=== PATIENT | female | born 1935 | race Caucasian/White ===

== ENCOUNTER 2017-05-01 14:10 | Inpatient (IN) | payer MEDICARE, OTHER ==
[~2017-05-01] VITALS: Ht 149.9 cm; Wt 74.3 kg
--- NOTE | ~2017-05-01 | CR72 ---
[facility] A Service of [facility] & [facility] RADIOLOGY TEXT RESULTS PATIENT: MARICRUZ PAULINO LOCATION: A 228 : 35 UNIT #: [id number] AGE: [address]: Rahul Hazel MD SEX: F ORDER DR: [id number] [facility] [address] [facility]. [place], [place] [address] [id number] I MR#: [id number] #: [id number] NAME: MARICRUZ PAULINO : 1935 SEX: F STUDY DATE/TIME: 05/01/2017 14:59 UNIT: [facility] ROOM: 228 STUDY DESCRIPTION: CR Chest Single View Portable Attending Physician: Rahul Hazel M.D. Ordering Physician: Jp Merino M.D. Primary Care Physician: Iesha Salcido M.D. MEDICAL IMAGING REPORT This report is preliminary unless electronic signature is present EXAM Single view chest INDICATIONS Single portable AP view chest compared to 11/18/2016. FINDINGS Heart and mediastinal contours are unchanged. There is a large hiatal hernia. This results in atelectasis in both lungs. No new pulmonary opacities. No pneumothorax. IMPRESSION No interval change. Large hiatal hernia resulting atelectasis in both lung bases. Dictated by... Cosmo Barbosa M.D. THIS IS AN ELECTRONICALLY VERIFIED REPORT Cosmo Barbosa M.D. at 05/02/2017 1:27 PM RPC/jono TD: 05/02/2017 13:10 JOB #: [id number] MEDICAL IMAGING REPORT Page 1 of 1 COPY
--- NOTE | ~2017-05-01 | A ---
[facility] Nutrition Therapy DATE: 05/06/17 Patient: MARICRUZ PAULINO Physician: NOHELIA Address: [address] [place] [address] [place]ACE Room/Bed: [address] [place] [address], Zip: [place] [address] Admit Date: 05/01/17 Date of : 35 Height: 4 11 Weight: 163 74.3 NUTRITIONAL ASSESSMENT: REASON: CONSULT PT IS 81 Y.O. FEMALE ADMITTED FOR COPD EXAC PMH: AFIB, COPD, HTN, ANXIETY, ASTHMA, CHF, HIATAL HERNIA Anthropometrics: 4'11", WT: 147# (PER PT) (67 KG), BMI: 29.7 -WEIGHT IN [facility] IS 163# Labs: GLU: 123, BUN: 24, K+:3.1, M.3 Meds: PREDNISONE, PROTONIX I/O & Bowel function: 1350/3900 Skin Integrity: DRY SKIN NOTED ALL OVER BODY Estimated Nutrition Needs: INCREASED NEEDS 2' CURRENT CONDITION, WEIGHT LOSS NOTED, DECREASED PO INTAKE AND APPETITE Assessment: CHART REVIEWED AND EVENTS NOTED. PT SEEN FOR CONSULT. PT REPORTS DECREASED PO INTAKE 2' DECREASED APPETITE PAST SEVERAL MONTHS. PT ADDS CAUSE OF HER DECREASED PO INTAKE AND APPETITE IS HIATAL HERNIA/N/V. PT REPORTS FOOD SOMETIMES GETS STUCK, NOTES DRINKING MOSTLY FLUIDS LATELY. PT REPORTS UBW IS ~170# BUT UNABLE TO REPORT TIME FRAME OF WEIGHT LOSS. THIS RD ENCOURAGED SMALL FREQUENT MEALS + SUPPLEMENT INTAKE, PT AGREED TO ENSURE PUDDING BID. OF NOTE, PT ALSO RECEIVING ENSURE SHAKES PER MD ORDERS. RD ALSO PROVIDED HOME WRITTEN AND VERBAL HIGH PROTEIN, HIGH CALORIE SOFT FOODS DIET EDUCATION. PT DEMONSTRATED UNDERSTANDING OF THE TOPIC, REPORTED NO DIET QUESTIONS AT THIS TIME. RD TO REMAIN AVAILABLE. Dx: INADEQUATE PROTEIN-ENERGY INTAKE R/T PMH-HIATAL HERNIA, CURRENT DIAGNOSIS, DECREASED APPETITE AEB PT REPORT ABOVE, WEIGHT LOSS NOTED. Intervention: 1. 2 GM NA + 1800 ML FLUID RESTRICTION 2. VANILLA ENSURE SHAKES TID 3. ENSURE PUDDING BID Monitoring, Evaluation and Goals: 1. ORAL INTAKE; CONSUME/TOLERATE >50% OF MEALS AND SUPPLEMENTS 2. WEIGHTS; PREVENT FURTHER UNINTENTIONAL WEIGHT LOSS 3. LABS; WNL [facility] Nutrition Therapy DATE: 05/06/17 Patient: MARICRUZ PAULINO Physician: NOHELIA Address: [address] [facility] [place] Room/Bed: [address] [place] [address], Zip: [place] [address] Admit Date: 05/01/17 Date of : 35 Height: 4 11 Weight: 163 74.3 MONITOR; PER PROTOCOL, CRITERIA TO DETERMINE WHETHER ABOVE GOALS ARE MET Recommendations: 1. RD TO ORDER [place] ENSURE PUDDING BID W/MEALS FOR ADDITIONAL PROTEIN AND KCAL 2. RECOMMEND TO CHANGE CURRENT DIET ORDER TO REGULAR, IF PO INTAKE MINIMAL 3. APPRECIATE FAMILY AND STAFF TO ENCOURAGE ADEQUATE PO INTAKE. ASSIST W/ORDERING MEALS NEEDED RD WILL F/U PER PROTOCOL PT IS MILDLY COMPROMISED Respectfully, VENITA GANNON MS, RD, LD Food and Nutritional Services [facility] cc: client file
--- NOTE | ~2017-05-01 | DS ---
Unit #: [id number] #: [id number] Patient: MARICRUZ PAULINO [id number] [address] [address] [id number] I MR#: [id number] NAME: MARICRUZ PAULINO ROOM: 228 Age: 81 Sex: F Admission Date: 05/01/2017 : 1935 Discharge Date: 05/07/2017 Attending Physician: Rahul Hazel M.D. Primary Care Physician: Iesha Salcido M.D. DISCHARGE SUMMARY DISCHARGE DIAGNOSES 1. Acute diastolic heart failure, improved with diuresis. 2. Severe chronic obstructive pulmonary disease, bronchospasm improved. 3. Chronic respiratory failure on 3 L nasal cannula oxygen at home. 4. Metabolic alkalosis, mild secondary to diuresis. 5. Thrombocytopenia, overall improved and stable at 100. 6. Very large hiatal hernia. 7. Permanent atrial fibrillation. 8. Pulmonary hypertension, right ventricular systolic pressure estimated at 38. 9. Supratherapeutic INR on presentation, improved. 10. Remote cerebrovascular accident. DISCHARGE MEDICATIONS 1. Advair one puff twice a day. 2. Incruse one puff once a day. 3. Albuterol as needed. 4. Oxygen 3 L at 24 hours a day. 5. Prednisone 40 mg a day for five days then discontinue. 6. Magnesium oxide 400 mg twice a day x5 days then discontinue. 7. Celexa 40 mg daily. 8. Lopressor 25 mg twice a day as per cardiology. 9. Coumadin dosing as per cardiology to an INR of approximately 2.5. 10. Bumex oral dose as per cardiology. 11. Singulair 10 mg daily. 12. Prilosec 20 mg twice a day. 13. Potassium 10 mEq daily. FOLLOWUP 1. Dr. Hazel's nurse practitioner in two weeks. 2. Dr. Hazel in six to eight weeks, consider nocturnal oximetry on oxygen. 3. She will follow up with Dr. George for general medical care. 4. Followup with Dr. Gutiérrez et sonali for cardiac care. DIET Healthy heart, low sodium. May need to liberalize if poor nutrition and/or weight loss as an outpatient. ACTIVITY Oxygen at 3 L at 24 hours a day. DESCRIPTION OF HOSPITALIZATION The patient was admitted through the emergency room with [facility] #: [id number] #: [id number] Patient: MARICRUZ PAULINO. She had diastolic heart failure, fairly significant massive edema. She also had mild COPD exacerbation and was treated appropriately. Her supratherapeutic INR was treated with vitamin K. Pulmonary whyte, she improved. She was changed over to oral steroids, continued to be wheeze free. She will continue her treatment as at home. Lower extremity venous Dopplers were checked for her edema which were negative. A D-dimer was checked in part for evaluation of her pulmonary hypertension and it was only 190. CT angiogram was not performed. Cardiology evaluated the patient, was adjusting her Coumadin and adjusting her diuretics. She had significant steady diuresis with IV Bumex. Oral dosing of her diuretics as per cardiology. She did have difficulty with hypokalemia, hypomagnesemia and this was corrected prior to discharge. She developed a mild metabolic alkalosis and will receive two doses of Diamox prior to discharge. Overall, she did well and was discharged in improved condition. Of note, her code status is do not resuscitate. Dictated by... Rahul Hazel M.D. ROMINA/tiffanie TD: 05/10/2017 12:01 JOB #: [id number] DISCHARGE SUMMARY Page 1 of 1 X Rahul Hazel MD X DISCHARGE SUMMARY
--- NOTE | ~2017-05-01 | CO ---
Unit #: [id number] #: [id number] Patient: MARICRUZ PAULINO [id number] [address] [place], [place] [address] [id number] I MR#: [id number] NAME: MARICRUZ PAULINO ROOM: 228 Age: 81 Sex: F Admission Date: 05/01/2017 : 1935 Attending Physician: Rahul Hazel M.D. Primary Care Physician: Iesha Salcido M.D. Consultation Date: 05/02/2017 CONSULTATION REPORT REASON FOR CONSULTATION Cardiovascular management. HISTORY OF PRESENT ILLNESS This is an 81-year-old white female, known to Dr. Gutiérrez in the office with a past medical history of atrial fibrillation, that was diagnosed in 10/2016; previous atrial tachycardia in 2006; anxiety; COPD, on 3 L nasal cannula; hypertension; and normal coronaries per cardiac catheterization in 09/2006. The patient was seen at [facility] in 10/2016 for an acute ischemic cerebrovascular accident and acute PE. She was discharged on long-term anticoagulation with Coumadin. A 2D echocardiogram was completed on 11/22/2016, which revealed an ejection fraction of 50% with a moderately enlarged right ventricle. There is cvrebnzw-bf-futkue tricuspid regurgitation with an RVSP of 38 mmHg. The patient presented to the emergency department with complaints of shortness of breath. She states that 2 weeks ago, she had some nausea, vomiting, and a flu-like illness, which improved. Since that time, she has had some ongoing shortness of breath. Yesterday, she was in the bathroom and it took her 1.5 hours to take a bath. When she was finished, she could not dress herself. EMS was dispatched and she was brought to the emergency department. She does complain of a recent fever and some pain in her left ear. She has had a nonproductive cough and generalized weakness. Her appetite has been decreased, and she states that due to her large hernia, she occasionally chokes on food, but not on a daily basis. There are no reports of chest pain. She admits to some palpitations. She denies dizziness or syncope. She has had some lower extremity edema and complains of not being able to lay flat at night. She sleeps with two pillows and often wakes up in the middle of the night with short of breath. In the emergency department. Her O2 saturation was 91% on 3 L nasal cannula. Initial labs revealed an INR of 7.5. The patient states that she is on Coumadin, which is managed by her primary care, but she has not had a ProTime checked in quite some time. In the emergency department, they gave her a full dose of aspirin, furosemide, and Solu-Medrol. She was admitted for COPD exacerbation and started on antibiotics, nebs, and continued steroids. Cardiology was consulted for cardiovascular management. Additional labs revealed BNP of 572. Platelets are mildly low at 124,000. Potassium was normal at 4.1. Creatinine is 0.7 with a BUN of 13. Chest x-ray reveals a large hiatal hernia, resulting in atelectasis in both lung bases. Initial cardiac enzymes are negative. EKG reveals atrial fibrillation with a left axis deviation and poor R-wave progression. Unit #: [id number] #: [id number] Patient: MARICRUZ PAULINO PAST MEDICAL HISTORY 1. Status post cardiac catheterization on 10/01/[address] [facility], which revealed left main LAD and left circumflex normal. Right coronary artery congenitally small, but normal. Ejection fraction 55%. Mild mitral regurgitation. 2. A 2D echocardiogram on 11/22/2016 at [facility] revealed an ejection fraction of 50%. Moderately enlarged right ventricle. RV global systolic function moderately reduced. Lqfxyqrd-dx-kkmxni tricuspid regurgitation. RVSP 38 mmHg. 3. Previous 2D echocardiogram on 05/15/2009 revealed mild asymmetric LVH. Mild left atrial enlargement. Qdiq-za-gvkfhpnb mitral regurgitation. Wzqqbxzn-fd-qtpjtk tricuspid regurgitation. RVSP 50 to 60 mmHg. Trace aortic regurgitation. 4. Previous admission to [facility] in 10/2016 for acute PE, acute ischemic cerebrovascular accident, and atrial fibrillation. 5. Previous left bundle-branch block, but not currently. 6. Atrial tachycardia in 2006. 7. COPD, on 3 L nasal cannula at home. 8. Anxiety. 9. Hypertension. 10. Nonsmoker. PAST SURGICAL HISTORY 1. Hysterectomy. 2. Cardiac catheterization. HOME MEDICATIONS Ventolin 2 puffs inhalation 4 times daily, Advair 250/50 one disk inhalation twice daily, Singulair 10 mg p.o. daily, metoprolol tartrate 100 mg p.o. daily, Celexa 40 mg p.o. daily, Norvasc 5 mg p.o. daily, Lasix 20 mg p.o. daily, Prilosec 20 mg p.o. b.i.d., Coumadin 2 mg p.o. daily, potassium 10 mEq p.o. daily, Breo 1 puff inhalation daily. ALLERGIES Meperidine. SOCIAL HISTORY The patient lives in a private resident with her son. She is on 3 L of home oxygen. She is a lifetime nonsmoker. There are no reports of alcohol or illicit drug use. FAMILY HISTORY Her mother had cancer and hypertension. Her father of "blood clots." REVIEW OF SYSTEMS A 10-point review of systems negative except for details noted above in HPI. PHYSICAL EXAMINATION VITAL SIGNS: Temperature 97.7, pulse 61, blood pressure 107/55. CONSTITUTIONAL: This is an 81-year-old white female, in no acute distress. SKIN: Warm and dry. NECK: Supple. No jugular vein distention. Retroflexed. Normal carotid upstrokes. No carotid bruits auscultated. HEART: S1 and S2. Irregularly irregular. Soft systolic ejection murmur at the left sternal border. No rubs or gallops. LUNGS: Bilateral breath sounds. Occasional wheezes and rales. Unit #: [id number] #: [id number] Patient: MARICRUZ PAULINO Respirations are even and nonlabored. No rhonchi. ABDOMEN: Soft, nontender, and nondistended. Positive bowel sounds auscultated x4 quadrants. No ascites noted. EXTREMITIES: Lower extremities have 3+ pitting edema. DP and PT pulses are 2+. Capillary refill is less than 2 seconds. DIAGNOSTIC STUDIES LABORATORY RESULTS: White blood cell count 8.4, hemoglobin 13.2, hematocrit 41.6, and platelets 124. Sodium 140, potassium 4.1, chloride 102, CO2 of 28, BUN 13, creatinine 0.7, glucose 99, AST 26, ALT 18, alkaline phosphatase 72. BNP 572. INR 7.5. IMAGING STUDIES: Chest x-ray reveals a large hiatal hernia, resulting in atelectasis in both lung base. CARDIOVASCULAR STUDIES: Electrocardiogram reveals atrial fibrillation with low-voltage QRS. Left axis deviation. Poor R-wave progression. QTc prolonged at 493 milliseconds. IMPRESSION 1. Acute diastolic congestive heart failure. 2. Large hiatal hernia. 3. Atrial fibrillation with controlled ventricular response, likely permanent. First diagnosed in 10/2016. 4. Over anticoagulation with Coumadin. 5. Chronic obstructive pulmonary disease, on 3 L of home oxygen. 6. Anxiety. 7. History of ischemic cerebrovascular accident in 10/2016 with no significant residual. 8. History of pulmonary embolism in 10/2016. 9. Hypertension. 10. Left ventricular ejection fraction of 50% with cbpyvynt-cg-rtvqzc tricuspid regurgitation. RVSP 38 mmHg per 2D echocardiogram on 11/22/2016. 11. Mild thrombocytopenia. 12. Nonsmoker. PLAN 1. The patient presents to the hospital with complaints of shortness of breath. She was admitted and Cardiology was consulted for further evaluation. 2. There is significant volume overload on exam. The patient will be started on IV diuretics, strict intake and output, and fluid restriction. 3. Her Coumadin has been placed on hold. There are no reports of bleeding. However, the patient is actively getting antibiotics. One dose of vitamin K will be given. The patient's INR will be rechecked tomorrow. 4. She will be continued on metoprolol at a lower dose. 5. Amlodipine will be discontinued due to lower extremity edema. 6. TSH and fasting lipid profile will be obtained as well as additional cardiac enzymes and EKG. 7. The patient denies chest pain on exam, and initial cardiac markers are negative. Dictated by... YAIR Lord Unit #: [id number] #: [id number] Patient: MARICRUZ PAULINO TD: 05/03/2017 09:59 JOB #: [id number] CONSULTATION REPORT Page 1 of 1 X X CONSULTATION REPORT
--- NOTE | ~2017-05-01 | US84 ---
[id number] [facility] [address] [facility] [address] [place], [place] [address] [id number] I MR#: [id number] Acc #: [id number] NAME: MARICRUZ PAULINO : 1935 SEX: F STUDY DATE/TIME: 05/03/2017 17:24 UNIT: C2A ROOM: 228 STUDY DESCRIPTION: US LE Veins Complete Eulalio Stdy Attending Physician: Rahul Hazel M.D. Ordering Physician: Rahul Hazel M.D. Primary Care Physician: Iesha Salcido M.D. MEDICAL IMAGING REPORT This report is preliminary unless electronic signature is present EXAM Bilateral lower extremity venous ultrasound HISTORY Right lower extremity and foot pain for 3 weeks. Bilateral lower extremity edema. FINDINGS Ultrasound examination of the lower extremity veins was performed from the groin to the calf bilaterally with sanders-scale, color Doppler and spectral Doppler evaluation. Exam is positive for superficial venous thrombosis in the right greater saphenous vein at the level of the ankle. No additional SVT. No DVT in the lower extremities bilaterally. Small amount of fluid is noted in the right popliteal fossa. IMPRESSION 1. No DVT. 2. Exam is positive for occlusive short-segment superficial venous thrombosis in the right greater saphenous vein at the level of the ankle. 3. Small amount of fluid in the right popliteal fossa. STAT * RESULT Dictated by... Rhys Mosley M.D. THIS IS AN ELECTRONICALLY VERIFIED REPORT Rhys Mosley M.D. at 05/04/2017 2:25 PM CHUN/abena TD: 05/04/2017 10:55 JOB #: [id number] MEDICAL IMAGING REPORT Page 1 of 1 COPY
--- NOTE | ~2017-05-01 | HP ---
Unit #: [id number] #: [id number] Patient: MARICRUZ WALLACE [id number] [address] [place], [place] [address] [id number] I MR#: [id number] NAME: MARICRUZ WALLACE ROOM: 228 Age: 81 Sex: F Admission Date: 05/01/2017 : 1935 Attending Physician: Rahul Hazel M.D. Primary Care Physician: Iesha Salcido M.D. HISTORY AND PHYSICAL HISTORY OF PRESENT ILLNESS Maricruz Wallace, is an 81-year-old female, admitted through the emergency room with the chief complaint of shortness of breath. Ms. Wallace has a history of chronic obstructive pulmonary disease, and congestive heart failure, as well as chronic respiratory failure. She is followed in her practice by Dr. Jose Hazel. The patient complained of worsening shortness of breath and exertional dyspnea for several weeks. She also complained that her ankles have been more swollen than usual. She denied wheezing, productive cough, purulent sputum, hemoptysis, or chest pain. she presented to the emergency room with the above complaints. It was unclear in ED whether her dyspnea was on a cardiac or pulmonary basis but she seems incapacitated by the severity of her dyspnea and was admitted. She had become short of breath walking from room to room and has become housebound because of dyspnea. The patient has a history of asthma and obstructive airway disease. She denied use of tobacco in the past. She is on home oxygen at three liters per minute and uses Advair and Breo plus p.r.n. albuterol at home. She also has a history of hypertension and congestive heart failure, and is followed by Dr. Grove. She also has a history of atrial arrhythmias and is on long-term anticoagulation with warfarin. In the emergency department, her INR was elevated at 7. PAST MEDICAL HISTORY Her past medical history is remarkable for a large hiatus hernia, hypertension, chronic obstructive pulmonary disease/asthma, congestive heart failure, atrial arrhythmias. OUTPATIENT MEDICATIONS Include: 1. Albuterol 2. Advair 250/50 3. Singulair 10 mg daily 4. Metoprolol 100 mg daily 5. Celexa 40 mg daily 6. Norvasc 5 mg daily 7. Lasix 20 mg daily 8. Prilosec 20 mg daily 9. Warfarin 2 mg daily 10. Potassium supplement 10 mEq per day 11. Breo Ellipta 200/25 one puff daily Unit #: [id number] #: [id number] Patient: MARICRUZ WALLACE ALLERGIES The patient is allergic to Demerol. FAMILY HISTORY Reviewed and noncontributory. Positive for cardiac disease. SOCIAL HISTORY The patient is nonsmoker, no history of alcohol or drug abuse. REVIEW OF SYSTEMS CONSTITUTIONAL: She denied fever, chills, or recent change in weight. ENT: Chronic nasal and sinus congestion and difficulty breathing through her nose, though this is no worse than usual. No epistaxis. NECK: No pain in cervical spine. No thyroid enlargement. PULMONARY: As above mainly complained of dyspnea on exertion. CARDIOVASCULAR: Denied mid sternal chest pain, increased edema in the lower extremities. GI: Denied nausea, vomiting, or diarrhea. : Denied dysuria or hematuria. SKIN: No rash or nodules. LYMPH: No adenopathy in the neck, cervical or axillary areas. NEURA: No loss of consciousness, seizures, or syncope. ENDOCRINE: Denied cold intolerance, polyuria, polydipsia. MUSCULOSKELETAL: Complained of arthritic pain in her lower back, hips, and knees all made worse by standing or walking for more than 5 to 10 minutes. PHYSICAL EXAMINATION GENERAL: On exam, she appeared an elderly white female. VITAL SIGNS: Today, temperature was 97.6, pulse was 53, respirations 18, her blood pressure was 118/66. HEENT: Head: Normocephalic without evidence of trauma. Eyes: Pupils are equal, round, and reactive to light. Accommodation not tested. Sclerae anicteric. Conjunctivae normal. Ears, nose, and throat: Nostrils open and patent. Tympanic membranes appeared normal. Oral cavity remarkable for an edentulous mouth. Mallampati class 2-3. NECK: Supple without adenopathy or jugular venous distention. LUNGS: Hyperresonant to percussion, with very diminished breath sounds but otherwise clear. No rales, rhonchi, nor wheezes. CARDIAC EXAMINATION: PMI poorly localized. Heart sounds distant. No murmurs or gallops. ABDOMEN: Soft and nontender. No hepatosplenomegaly or masses. Bowel sounds are normal. GENITALIA: Normal female. RECTAL EXAM: Deferred. EXTREMITIES: Without clubbing or cyanosis, 2+ pedal edema noted. SKIN: Warm and dry with normal capillary refill. NEURO: Cranial nerves II through XII intact. Sensory was normal to pin prick and touch, 4/5 strength in the extremities. Deep tendon reflexes were 1+ in both upper and lower extremities. Babinski's negative. DIAGNOSTIC STUDIES LABORATORY: On oxygen at three liters per minute, while in the ED, pO2 was 86.9, pCO2 was 42.6, pH 7.405. IMAGING: Her chest x-ray remarkable for a large hiatus hernia and bibasilar atelectasis, her BUN was 15, creatinine was 0.8, her Unit #: [id number] #: [id number] Patient: MARICRUZ WALLACE electrolytes were normal. Enzymatic CO2 was 24. Her total bilirubin was elevated at 2.6, direct elevated at 1.0. Her transaminase levels were normal. This morning her INR was 7.9. This morning her hemoglobin was 12.9 grams, hematocrit 39.2%, white blood cell count was 4,000. IMPRESSION 1. Exertional dyspnea. 2. Congestive heart failure which seems I suspect is a contributing cause to her dyspnea. 3. Chronic obstructive pulmonary disease/asthma. 4. Excess anticoagulation. 5. Hypertension. 6. Gastroesophageal reflux/hiatus hernia. 7. Depression. 8. Excess anticoagulation. RECOMMENDATIONS The patient has been placed on nebulized ipratropium plus albuterol q.4h, Symbicort 160/4.5 two puffs every 12 hours, Solu-Medrol 40 mg IV q.8h, doxycycline 50 mg p.o. every 12 hours, oxygen at three liters per minute. Her warfarin has been placed on hold. I have asked cardiology with Dr. Grove to see the patient and for her help concerning cardiac component to her dyspnea. Dictated by Jose Nathan M.D. GIL/ronald TD: 05/03/2017 05:52 JOB #: [id number] HISTORY AND PHYSICAL Page 1 of 1 X Jose Nathan MD X HISTORY AND PHYSICAL
--- NOTE | ~2017-05-01 | EKG ---
PATIENT: MARICRUZ PAULINO UNIT #: [id number] Ventricular Rate: 71 BPM Atrial Rate: 80 BPM QRS Duration: 116 ms Q-T Interval: 454 ms QTC Calculation(Bezet): 493 ms Calculated R [place]: -97 degrees Calculated T [place]: 139 degrees Diagnosis Line: Atrial fibrillation Diagnosis Line: Low voltage QRS Diagnosis Line: Inferior infarct , age undetermined Diagnosis Line: Anterolateral infarct , age undetermined Diagnosis Line: Abnormal ECG Diagnosis Line: No previous ECGs available Diagnosis Line: Confirmed by STEFF GUERIN MD ([id number]) on 05/05/2017 Diagnosis Line: 7:41:24 AM INTERPRETING MD: TRUONG VERMA
[~2017-05-01 14:10] MED LIST: ADVAIR 250-501 EAC1 IH; ALBUTEROL17 GM INH; CITALOPRAM HBR40 MG PO; CLARITIN10 MG PO; HCTZ PO; LISINOPRIL PO; MELATONIN5 M1 PO; METOPROLOL PO; MONTELUKAST SOD10 MG PO; OMEPRAZOLE20 M2 PO; OYSTER CALCIUM500 MG PO; SIMVASTATIN20 MG PO
[2017-05-01 14:40] LABS: POC - CKMB 1.4 ng/mL (0.0-7.9); POC - TROPONIN <0.05 ng/mL (<=0.05)
[2017-05-01 14:44] LABS: ARTERIAL BLD GAS O2 SATURATION 95.3 % (90.0-100.0); ARTERIAL BLOOD GAS CARBOXY HB 0.8 %sat (0.0-9.0); ARTERIAL BLOOD GAS HCO3 26.7 mmol/L; ARTERIAL BLOOD GAS MET HB 1.1 %sat (0.0-2.0); ARTERIAL BLOOD GAS PCO2 42.6 mmHg (35.0-45.0); ARTERIAL BLOOD GAS PO2 86.9 mmHg (80.0-100); ARTERIAL BLOOD GAS pH 7.405 (7.350-7.450)
[2017-05-01 14:45] LABS: ARTERIAL BLOOD GAS ALLEN TEST NORMAL; ARTERIAL BLOOD GAS ART SITE RIGHT RADIAL; ARTERIAL DRAW? YES
[2017-05-01 14:46] LABS: ARTERIAL BLOOD GAS DELIVERY NASAL CANNULA
[2017-05-01 14:49] LABS: BASOPHIL% 0.4 % (0-2.5); EOSINOPHIL% 0.3 % (0.0-7.0); HEMATOCRIT 41.6 % (35.0-45.0); HEMOGLOBIN 13.2 gm/dL (12.0-16.0); LYMPHOCYTE% 23.3 % (17.0-45.0); MEAN CELL VOLUME 97.1 FL (83-96); MEAN CORPUSCULAR HEMOGLOBIN 30.8 PG (28-34); MEAN CORPUSCULAR HGB CONC 31.7 g/dL (30-36); MEAN PLATELET VOLUME 11.2 FL (6.5-11.5); MONOCYTE% 11.5 % (3.0-12.0); NEUTROPHIL# 5.4 X10e3 (1.5-7.1); NEUTROPHIL% 64.5 % (40-75); PLATELET COUNT 124 X10e3 (140-420); RED BLOOD COUNT 4.28 X10e (3.90-5.30); RED CELL DISTRIBUTION WIDTH 16.6 % (11.0-15.5); WHITE BLOOD COUNT 8.4 X10e3 (4.0-10.5)
[2017-05-01 15:07] LABS: DIFF IND NO
[2017-05-01 15:12] LABS: PARTIAL THROMBOPLASTIN TIME 37.9 SECONDS (23.5-31.3); PROTHROMBIN TIME (PATIENT) 81.6 SECONDS (10.0-11.7)
[2017-05-01 15:21] LABS: INR 7.5
[2017-05-01] MEDS ORDERED: NORVASC PO (16:00)
[2017-05-01] MEDS ORDERED: LASIX20 MG PO (16:00)
[2017-05-01] MEDS ORDERED: PRILOSEC PO (16:00)
[2017-05-01] MEDS ORDERED: EFFER-K 10 MEQ10 MEQ PO (16:01)
[2017-05-01] MEDS ORDERED: COUMADIN1 MG PO (16:01)
[2017-05-01] MEDS ORDERED: BREO ELLIPTA 21 EACH INH (16:02)
[2017-05-01 17:12] LABS: ALBUMIN SERUM 3.7 g/dL (3.5-5.0); BILIRUBIN,INDIRECT 1.6 mg/dL (0.0-0.9); BILIRUBIN,TOTAL 2.6 mg/dL (0.2-2.0); BUN/CREATININE RATIO 18.57; CALCIUM SERUM 8.4 mg/dL (8.4-10.2); CREATININE SERUM 0.7 mg/dL (0.6-1.4); GLOM FILT RATE Estimated 81.3 mL/min (>60); POTASSIUM 4.1 mmol/L (3.5-5.1)
[2017-05-01 18:21] LABS: POC - CKMB 1.5 ng/mL (0.0-7.9); POC - TROPONIN <0.05 ng/mL (<=0.05)
[2017-05-02 09:40] LABS: HEMATOCRIT 39.2 % (35.0-45.0); HEMOGLOBIN 12.9 gm/dL (12.0-16.0); MEAN CELL VOLUME 96.3 FL (83-96); MEAN CORPUSCULAR HEMOGLOBIN 31.6 PG (28-34); MEAN CORPUSCULAR HGB CONC 32.8 g/dL (30-36); RED BLOOD COUNT 4.06 X10e (3.90-5.30); RED CELL DISTRIBUTION WIDTH 16.4 % (11.0-15.5)
[2017-05-02 10:04] LABS: PROTHROMBIN TIME (PATIENT) 86.2 SECONDS (10.0-11.7)
[2017-05-02 10:10] LABS: INR 7.9
[2017-05-02 10:19] LABS: BUN/CREATININE RATIO 18.75; CREATININE SERUM 0.8 mg/dL (0.6-1.4); GLOM FILT RATE Estimated 69.2 mL/min (>60); MAGNESIUM 1.3 mg/dL (1.6-3.0); POTASSIUM 3.6 mmol/L (3.5-5.1)
[2017-05-03 06:15] LABS: HEMOGLOBIN 12.4 gm/dL (12.0-16.0); MEAN CELL VOLUME 95.3 FL (83-96); MEAN CORPUSCULAR HEMOGLOBIN 31.1 PG (28-34); MEAN CORPUSCULAR HGB CONC 32.6 g/dL (30-36); MEAN PLATELET VOLUME 9.2 FL (6.5-11.5); RED BLOOD COUNT 3.99 X10e (3.90-5.30); RED CELL DISTRIBUTION WIDTH 16.1 % (11.0-15.5)
[2017-05-03 06:42] LABS: PROTHROMBIN TIME (PATIENT) 32.8 SECONDS (10.0-11.7)
[2017-05-03 06:49] LABS: CALCIUM SERUM 8.5 mg/dL (8.4-10.2); CREATININE SERUM 0.8 mg/dL (0.6-1.4); GLOM FILT RATE Estimated 69.2 mL/min (>60); MAGNESIUM 1.7 mg/dL (1.6-3.0); POTASSIUM 3.6 mmol/L (3.5-5.1)
[2017-05-04 06:44] LABS: HEMATOCRIT 38.2 % (35.0-45.0); HEMOGLOBIN 12.6 gm/dL (12.0-16.0); MEAN CELL VOLUME 95.8 FL (83-96); MEAN CORPUSCULAR HEMOGLOBIN 31.5 PG (28-34); MEAN CORPUSCULAR HGB CONC 32.9 g/dL (30-36); MEAN PLATELET VOLUME 9.2 FL (6.5-11.5); RED BLOOD COUNT 3.99 X10e (3.90-5.30); WHITE BLOOD COUNT 6.2 X10e3 (4.0-10.5)
[2017-05-04 07:25] LABS: BUN/CREATININE RATIO 32.85; CALCIUM SERUM 8.6 mg/dL (8.4-10.2); CREATININE SERUM 0.7 mg/dL (0.6-1.4); GLOM FILT RATE Estimated 81.3 mL/min (>60); MAGNESIUM 1.7 mg/dL (1.6-3.0); POTASSIUM 4.3 mmol/L (3.5-5.1)
[2017-05-04 11:34] LABS: INR 1.5
[2017-05-04 11:44] LABS: PROTHROMBIN TIME (PATIENT) 16.1 SECONDS (10.0-11.7)
[2017-05-05 05:29] LABS: INR 1.4; PROTHROMBIN TIME (PATIENT) 15.1 SECONDS (10.0-11.7)
[2017-05-05 05:40] LABS: HEMATOCRIT 39.4 % (35.0-45.0); HEMOGLOBIN 12.9 gm/dL (12.0-16.0); MEAN CELL VOLUME 95.4 FL (83-96); MEAN CORPUSCULAR HEMOGLOBIN 31.4 PG (28-34); MEAN CORPUSCULAR HGB CONC 32.9 g/dL (30-36); RED BLOOD COUNT 4.13 X10e (3.90-5.30); RED CELL DISTRIBUTION WIDTH 16.1 % (11.0-15.5); WHITE BLOOD COUNT 5.8 X10e3 (4.0-10.5)
[2017-05-06 06:01] LABS: HEMATOCRIT 40.6 % (35.0-45.0); HEMOGLOBIN 13.4 gm/dL (12.0-16.0); MEAN CELL VOLUME 95.5 FL (83-96); MEAN CORPUSCULAR HEMOGLOBIN 31.4 PG (28-34); MEAN CORPUSCULAR HGB CONC 32.9 g/dL (30-36); MEAN PLATELET VOLUME 9.3 FL (6.5-11.5); RED BLOOD COUNT 4.26 X10e (3.90-5.30); RED CELL DISTRIBUTION WIDTH 16.5 % (11.0-15.5); WHITE BLOOD COUNT 5.4 X10e3 (4.0-10.5)
[2017-05-06 06:51] LABS: INR 1.5; PROTHROMBIN TIME (PATIENT) 16.1 SECONDS (10.0-11.7)
[2017-05-06 07:15] LABS: CALCIUM SERUM 8.5 mg/dL (8.4-10.2); CREATININE SERUM 0.8 mg/dL (0.6-1.4); GLOM FILT RATE Estimated 69.2 mL/min (>60); MAGNESIUM 1.3 mg/dL (1.6-3.0); POTASSIUM 3.1 mmol/L (3.5-5.1)
[2017-05-07 05:25] LABS: HEMATOCRIT 40.2 % (35.0-45.0); HEMOGLOBIN 13.1 gm/dL (12.0-16.0); MEAN CELL VOLUME 95.6 FL (83-96); MEAN CORPUSCULAR HEMOGLOBIN 31.2 PG (28-34); MEAN CORPUSCULAR HGB CONC 32.7 g/dL (30-36); MEAN PLATELET VOLUME 9.4 FL (6.5-11.5); RED BLOOD COUNT 4.21 X10e (3.90-5.30); RED CELL DISTRIBUTION WIDTH 15.9 % (11.0-15.5); WHITE BLOOD COUNT 7.8 X10e3 (4.0-10.5)
[2017-05-07 06:09] LABS: BUN/CREATININE RATIO 37.14; CALCIUM SERUM 8.2 mg/dL (8.4-10.2); CREATININE SERUM 0.7 mg/dL (0.6-1.4); GLOM FILT RATE Estimated 81.3 mL/min (>60); MAGNESIUM 1.7 mg/dL (1.6-3.0); POTASSIUM 3.4 mmol/L (3.5-5.1)
[2017-05-07 09:32] LABS: INR 1.8; PROTHROMBIN TIME (PATIENT) 20.1 SECONDS (10.0-11.7)
[2017-05-07] MEDS ORDERED: LASIX20 MG PO (15:43)
[2017-05-07] MEDS ORDERED: K-DUR20 ME1 PO (15:54)
[2017-05-07] MEDS ORDERED: DELTASONE20 MG PO (15:55)
[2017-05-07] MEDS ORDERED: MAG-OX 400400 M1 PO (15:56)
[2017-05-07] MEDS ORDERED: LOPRESSOR PO (16:05)
== END 2017-05-07 18:55 | disposition home or self-care (01) | DRG 190 ==
LOC: CED 14:10 → CEDOF 16:10 → CED 16:10 → C2A 16:10 → CEDOF 20:27 → C2A 05-07 18:55
PROVIDERS: Emergency Medicine; Internal Medicine; Internal Medicine Cardiovascular Disease; Nurse Practitioner
DX: J44.9 Chronic obstructive pulmonary disease, unspecified (principal); I50.31 Acute diastolic (congestive) heart failure; J96.10 Chronic respiratory failure, unspecified whether with hypoxia or hypercapnia; E87.3 Alkalosis; I08.1 Rheumatic disorders of both mitral and tricuspid valves; I11.0 Hypertensive heart disease with heart failure; D69.6 Thrombocytopenia, unspecified; Z99.81 Dependence on supplemental oxygen; I48.2 Chronic atrial fibrillation; J45.909 Unspecified asthma, uncomplicated; K21.9 Gastro-esophageal reflux disease without esophagitis; K44.9 Diaphragmatic hernia without obstruction or gangrene; F32.9 Major depressive disorder, single episode, unspecified; Z79.01 Long term (current) use of anticoagulants; Z86.711 Personal history of pulmonary embolism; Z86.73 Personal history of transient ischemic attack (TIA), and cerebral infarction without residual deficits; F41.9 Anxiety disorder, unspecified; Z90.710 Acquired absence of both cervix and uterus; Z66 Do not resuscitate
CPT/HCPCS: 36415; 36600; 71010; 80048; 80061; 80076; 82553; 82803; 83735; 83880; 84100; 84443; 84484; 85025; 85027; 85379; 85610; 85730; 93005; 93970; 94640; 94664; 94760; 99285; J1940; J2920; J3475